=== PATIENT | female | born 1990 | race American Indian/Alaskan Native ===

== ENCOUNTER 2017-11-18 15:10 | Emergency (ER) | payer MEDICAID ==
[2017-11-18 15:49] LABS: Bilirubin,Urine NEG (Negative); Blood,Urine LG (Negative); Color,Urine Yellow (Yellow); Mucus,Urine 3+ /HPF; RBC,Urine > 182.0 /HPF (0.0-6.0)
[2017-11-18 16:05] LABS: HCG Qualitative,Urine Negative (Negative)
[2017-11-18] MEDS ORDERED: NACL 0.9% 1000 ML 1,000 ML IV ONE (20:46)
[2017-11-18] MEDS ORDERED: MORPHINE IV ONE ×2 (20:47→23:41)
--- NOTE | 2017-11-18 21:07 | Emergency Department Report ---
HPI - General Chief Complaint: Abdominal Pain Time Seen by Provider: 11/18/17 20:32 - HPI HPI: 27-year-old female presents the emergency department with a 5 day history of right sided abdominal pain and heavy vaginal bleeding. Patient says that her implanted control felt like it popped just prior to all of these symptoms starting. It is Emplanon and she has had it in for about 1.5 years. She normally does not have any menstrual cycle but as soon as she had this popping sensation in her left upper arm she began having symptoms of a menstrual cycle. However the abdominal pain is more up in the abdomen than in the pelvis but does radiate down to the pelvis and her right leg. It is associated with a small amount of vaginal discharge when the symptoms first began, but that has since resolved, and subjective fever. Patient also has some body aches and complains of a mixed dry and productive cough. She otherwise just has a past medical history of asthma. [facility] sees [facility]/ [facility] and has an appointment for tomorrow but when she spoke to them and discussed her symptoms she was told to come to the emergency department. She's been taking [id number] pain medication for her symptoms without any relief. ED Past Medical Hx - Past Medical History Previous Medical History?: Yes Hx Asthma: Yes - Surgical History Past Surgical History?: No - Social History Smoking Status: Current Every Day Smoker Substance Use Type: Marijuana - Medications Home Medications: Home Medications Medication Instructions Recorded Confirmed Last Taken Type HYDROcodone/APAP 5-325 [Delta 1 each PO Q6HR PRN #10 tablet 11/19/17 Unknown Rx 5/325] Nitrofurantoin Cecil/M-Cryst 100 mg PO BID #14 capsule 11/19/17 Unknown Rx [Macrobid CAP] ED Review of Systems ROS: Stated complaint: RT SIDE PAIN Other details as noted in HPI Comment: All other systems reviewed and negative Constitutional: fever (subjective). denies: chills Eyes: denies: eye pain, eye discharge, vision change ENT: denies: ear pain, throat pain Respiratory: denies: cough, shortness of breath, wheezing Cardiovascular: denies: chest pain, palpitations Gastrointestinal: abdominal pain. denies: vomiting Genitourinary: discharge, abnormal menses, other (vaginal bleeding) Musculoskeletal: myalgia. denies: joint swelling Skin: denies: rash, lesions Neurological: denies: headache, weakness, paresthesias Physical Exam - Physical Exam Vital Signs: Vital Signs 11/18/17 11/18/17 15:13 20:47 Temperature 98.0 F 98.4 F Pulse Rate 105 H 67 Respiratory 18 16 Rate Blood Pressure 126/81 Blood Pressure 125/77 [Right] O2 Sat by Pulse 99 99 Oximetry Physical Exam: GENERAL: The patient is well-developed well-nourished. HENT: Normocephalic. Atraumatic. Patient has moist mucous membranes. EYES: Extraocular motions are intact. Pupils equal reactive to light bilaterally. NECK: Supple. Trachea is midline. CHEST/LUNGS: Clear to auscultation. There is no respiratory distress noted. HEART/CARDIOVASCULAR: Regular. There is no tachycardia. There is no murmur. ABDOMEN: Abdomen is soft. There is some right middle and lower quadrant abdominal tenderness palpation. No guarding. Patient has normal bowel sounds. SKIN: Skin is warm and dry. NEURO: The patient is awake, alert, and oriented. The patient is cooperative. The patient has no focal neurologic deficits. The patient has normal speech and gait. MUSCULOSKELETAL: There is no tenderness or deformity. There is no limitation range of motion. There is no evidence of acute injury. ED Course Vital Signs 11/18/17 11/18/17 15:13 20:47 Temperature 98.0 F 98.4 F Pulse Rate 105 H 67 Respiratory 18 16 Rate Blood Pressure 126/81 Blood Pressure 125/77 [Right] O2 Sat by Pulse 99 99 Oximetry ED Medical Decision Making - Lab Data Result diagrams: 11/18/17 21:00 11/18/17 21:00 - Radiology Data Radiology results: report reviewed EXAM: CT ABDOMEN PELVIS W CON HISTORY: right sided abdominal pain TECHNIQUE: CT abdomen and pelvis with intravenous contrast PRIORS: None. FINDINGS: No acute abnormality identified in the lung bases. No focal abnormality identified within the liver parenchyma. The spleen demonstrates normal size and attenuation. No pancreatic abnormalities seen. The kidneys demonstrate symmetric contrast enhancement. No evidence of hydronephrosis. The adrenal glands are unremarkable Abdominal aorta is normal in caliber. No pathologically enlarged lymph nodes are identified. No signs of free fluid or free air No evidence of small bowel dilatation. Colon is nondistended. No pericolonic inflammatory change. Urinary bladder is unremarkable. IMPRESSION: Negative. No acute abnormalities seen Transcribed By: JDK Dictated By: ARON ARMSTRONG MD Electronically Authenticated By: ARON ARMSTRONG MD Signed Date/Time: 11/18/17 6477 EXAM: US TRANSVAGINAL US TRANSABDOMINAL HISTORY: pelvic pain TECHNIQUE: Transabdominal and transvaginal sonographic evaluation was performed of the female pelvis with and without color Doppler imaging. PRIORS: CT abdomen and pelvis dated 11/18/2017. FINDINGS: The uterus is retroflexed and the myometrium is unremarkable with no focal lesion identified. The endometrial stripe is normal in thickness. Punctate, echogenic foci are noted within the endometrium. Survey of the adnexal regions reveal normal flow to both ovaries. 1.8 x 1.1 x 0.6 cm cystic lesion noted in the left ovary. No free fluid within the posterior cul-de-sac. Measurements: Last menstrual: 11/13/2017. Uterus: 8.5 x 4.1 x 5.6 cm. Endometrial stripe: 2.9 mm. Right ovary: 2.1 x 1.2 x 2.1 cm. Left ovary: 3.5 x 2.1 x 2.3 cm. IMPRESSION: No acute abnormality involving the uterus or adnexa/ovaries. Incidental punctate echogenic foci within the endometrium, probable small calcifications. Extensive differential which may be secondary to small polyps, prior infection or inflammatory process. Transcribed By: AMINA Dictated By: HAILEY BUSTOS DO Electronically Authenticated By: HAILEY BUSTOS DO Signed Date/Time: 11/19/17 0201 - Medical Decision Making Patient presents with a 5 day history of some right-sided abdominal pain, heavy vaginal bleeding that she believes it started after some issue with her implanted contraceptive device. Patient's vital signs were stable throughout her ED course including being afebrile. Labs did not show any significant anemia, no leukocytosis, no renal deficiency or glucose abnormalities. There is a mild urinary tract infection. The patient has some hypokalemia with potassium of 3 that was replaced with potassium chloride. CT scan of the abdomen and pelvis with IV contrast did not show any acute process. Transvaginal ultrasound also did not show any acute process or etiology of the patient's symptoms. She has been reevaluated multiple times for multiple hours and has remained stable throughout her ED course. She has an appointment set up for this morning, Wednesday, with the [facility]. She'll be discharged home with some pain medication, antibiotics for her mild urinary tract infection. She is instructed to return to the emergency Department with any worsening of her symptoms or any acute distress. - Differential Diagnosis appendicitis, nephrolithiasis, ovarian cyst, ovarian torsion, fibroids Critical Care Time: No Critical care attestation.: If time is entered above; I have spent that time in minutes in the direct care of this critically ill patient, excluding procedure time. ED Disposition Clinical Impression: Vaginal bleeding, Pelvic pain, Hypokalemia Menorrhagia Qualifiers: Menorrahagia type: with irregular cycle Qualified Code(s): N92.1 - Excessive and frequent menstruation with irregular cycle Abdominal pain Qualifiers: Abdominal location: unspecified location Qualified Code(s): R10.9 - Unspecified abdominal pain UTI (urinary tract infection) Qualifiers: Urinary tract infection type: acute cystitis Hematuria presence: with hematuria Qualified Code(s): N30.01 - Acute cystitis with hematuria Disposition: TO HOME OR SELFCARE Is pt being admited?: No Condition: Stable Instructions: Dysfunctional Uterine Bleeding (ED), Urinary Tract Infection in Women (ED), Hypokalemia (ED), Abdominal Pain (ED), Menorrhagia (ED) Additional Instructions: Please follow-up with your [facility] later today as previously scheduled. Return to the emergency Department with any worsening of your symptoms or any acute distress. You have been prescribed a medication that is sedating and therefore should not be taken prior to driving, working, and responsible for children and in no way should be mixed with alcohol of any quantity. Prescriptions: HYDROcodone/APAP 5-325 [Delta 5/325] 1 each PO Q6HR PRN #10 tablet PRN Reason: Pain Nitrofurantoin Cecil/M-Cryst [Macrobid CAP] 100 mg PO BID #14 capsule Referrals: [facility] [Provider Group] - 11/19/17 Time of Disposition: 02:11
[2017-11-18 21:08] LABS: Basophils % (Auto) 0.4 % (0.0-1.8); Eosinophils # (Auto) 0.3 K/mm3 (0.0-0.4); Eosinophils % (Auto) 2.7 % (0.0-4.3); Hematocrit 39.6 % (30.3-42.9); Lymphocytes # (Auto) 2.5 K/mm3 (1.2-5.4); Lymphocytes % (Auto) 26.3 % (13.4-35.0); Mean Corpuscular HGB Conc 35 % (30-34); Mean Corpuscular Hemoglobin 32 pg (28-32); Mean Corpuscular Volume 91 fl (79-97); Monocytes # (Auto) 0.6 K/mm3 (0.0-0.8); Monocytes % (Auto) 6.1 % (0.0-7.3); Platelet Count 228 K/mm3 (140-440); Red Blood Count 4.36 M/mm3 (3.65-5.03); Red Cell Distribution Width 13.9 % (13.2-15.2)
[2017-11-18 21:26] LABS: Alanine Aminotransferase 12 units/L (7-56); Albumin 3.4 g/dL (3.9-5); BUN/Creatinine Ratio 17; Blood Urea Nitrogen 5 mg/dL (7-17); Calcium 7.2 mg/dL (8.4-10.2); Hemolysis Index 31; Lipase 10 units/L (13-60)
[2017-11-18] MEDS ORDERED: K-DUR PO ONE (21:37)
[2017-11-18] MEDS ORDERED: TESSALON PERLES PO ONE (22:08)
--- NOTE | 2017-11-18 22:58 | Cat Scan Report ---
FINAL REPORT EXAM: CT ABDOMEN PELVIS W CON HISTORY: right sided abdominal pain TECHNIQUE: CT abdomen and pelvis with intravenous contrast PRIORS: None. FINDINGS: No acute abnormality identified in the lung bases. No focal abnormality identified within the liver parenchyma. The spleen demonstrates normal size and attenuation. No pancreatic abnormalities seen. The kidneys demonstrate symmetric contrast enhancement. No evidence of hydronephrosis. The adrenal glands are unremarkable Abdominal aorta is normal in caliber. No pathologically enlarged lymph nodes are identified. No signs of free fluid or free air No evidence of small bowel dilatation. Colon is nondistended. No pericolonic inflammatory change. Urinary bladder is unremarkable. IMPRESSION: Negative. No acute abnormalities seen
--- NOTE | 2017-11-19 02:01 | Ultrasound Report ---
FINAL REPORT EXAM: US TRANSVAGINAL US TRANSABDOMINAL HISTORY: pelvic pain TECHNIQUE: Transabdominal and transvaginal sonographic evaluation was performed of the female pelvis with and without color Doppler imaging. PRIORS: CT abdomen and pelvis dated 11/18/2017. FINDINGS: The uterus is retroflexed and the myometrium is unremarkable with no focal lesion identified. The endometrial stripe is normal in thickness. Punctate, echogenic foci are noted within the endometrium. Survey of the adnexal regions reveal normal flow to both ovaries. 1.8 x 1.1 x 0.6 cm cystic lesion noted in the left ovary. No free fluid within the posterior cul-de-sac. Measurements: Last menstrual: 11/13/2017. Uterus: 8.5 x 4.1 x 5.6 cm. Endometrial stripe: 2.9 mm. Right ovary: 2.1 x 1.2 x 2.1 cm. Left ovary: 3.5 x 2.1 x 2.3 cm. IMPRESSION: No acute abnormality involving the uterus or adnexa/ovaries. Incidental punctate echogenic foci within the endometrium, probable small calcifications. Extensive differential which may be secondary to small polyps, prior infection or inflammatory process.
--- NOTE | 2017-11-19 02:03 | Ultrasound Report ---
FINAL REPORT EXAM: US PELVIS DUPLEX DOPPLER COMP HISTORY: pelvic pain TECHNIQUE: Transabdominal and transvaginal sonographic evaluation was performed of the female pelvis with and without color Doppler imaging. PRIORS: CT abdomen and pelvis dated 11/18/2017. FINDINGS: The uterus is retroflexed and the myometrium is unremarkable with no focal lesion identified. The endometrial stripe is normal in thickness. Punctate, echogenic foci are noted within the endometrium. Survey of the adnexal regions reveal normal flow to both ovaries. 1.8 x 1.1 x 0.6 cm cystic lesion noted in the left ovary. No free fluid within the posterior cul-de-sac. Measurements: Last menstrual: 11/13/2017. Uterus: 8.5 x 4.1 x 5.6 cm. Endometrial stripe: 2.9 mm. Right ovary: 2.1 x 1.2 x 2.1 cm. Left ovary: 3.5 x 2.1 x 2.3 cm. IMPRESSION: No acute abnormality involving the uterus or adnexa/ovaries. Incidental punctate echogenic foci within the endometrium, probable small calcifications. Extensive differential which may be secondary to small polyps, prior infection or inflammatory process.
[2017-11-19] MEDS ORDERED: MACROBID PO ONE (02:09)
[2017-11-19 02:35] VITALS: BP 117/88
== END 2017-11-19 02:36 | disposition home or self-care (01) ==
LOC: ED 15:10
DX: N30.01 Acute cystitis with hematuria (principal); N93.9 Abnormal uterine and vaginal bleeding, unspecified; N92.1 Excessive and frequent menstruation with irregular cycle; E87.6 Hypokalemia; J45.909 Unspecified asthma, uncomplicated; F17.200 Nicotine dependence, unspecified, uncomplicated; F12.90 Cannabis use, unspecified, uncomplicated
CPT/HCPCS: 36415; 74177; 76830; 80053; 81001; 81025; 83690; 85025; 93975; 96374; 96376; 99284; J2270; J7030; Q9967

== ENCOUNTER 2018-08-19 19:03 | Emergency (ER) | payer MEDICAID ==
--- NOTE | 2018-08-19 19:23 | Emergency Department Report ---
Blank Doc - Documentation Documentation: This is a 28-year-old female that presents with sore throat, body aches, and h eadache. Denies worst headache. Denies thunderclap headache. Denies any injuries. This initial assessment/diagnostic orders/clinical plan/treatment(s) is/are subject to change based on patient's health status, clinical progression and re- assessment by fellow clinical providers in the ED. Further treatment and workup at subsequent clinical providers discretion. Patient/guardians urged not to elope from the ED as their condition may be serious if not clinically assessed and managed. Initial orders include: 1- Patient sent to [facility] for further evaluation and treatment 2- strep swab
[2018-08-19 19:25] VITALS: BP 123/77
--- NOTE | 2018-08-19 21:17 | Emergency Department Report ---
ED ENT HPI - General Chief complaint: Sore Throat Stated complaint: SORE THROAT/NAUSEA Time Seen by Provider: 08/19/18 19:22 Source: patient Mode of arrival: Ambulatory Limitations: No Limitations, Language Barrier - History of Present Illness Initial comments: Pt is a 28 yo female who presents to the ED with c/o sore throat that began yesterday. She has associated SEN, fatigue, and pain with swallowing. She denies any fever or ear ache. She denies any sick contact. she states she took motrin without much relief. she denies PMHx. she has an allergy to penicillin. - Related Data Previous Rx's Medication Instructions Recorded Last Taken Type HYDROcodone/APAP 5-325 [[place] 1 each PO Q6HR PRN #10 tablet 11/19/17 Unknown Rx 5/325] Nitrofurantoin Bull[place]/M-Cryst 100 mg PO BID #14 capsule 11/19/17 Unknown Rx [Macrobid CAP] Azithromycin [Zithromax Tri-Sy] 500 mg PO DAILY 5 Days #5 tablet 08/19/18 Unknown Rx Allergies Allergy/AdvReac Type Severity Reaction Status Date / Time Penicillins Allergy Unknown Verified 11/18/17 15:13 ED Dental HPI - General Chief complaint: Sore Throat Stated complaint: SORE THROAT/NAUSEA Time Seen by Provider: 08/19/18 19:22 Source: patient Mode of arrival: Ambulatory Limitations: No Limitations, Language Barrier - Related Data Previous Rx's Medication Instructions Recorded Last Taken Type HYDROcodone/APAP 5-325 [[place] 1 each PO Q6HR PRN #10 tablet 11/19/17 Unknown Rx 5/325] Nitrofurantoin Bulloch/M-Cryst 100 mg PO BID #14 capsule 11/19/17 Unknown Rx [Macrobid CAP] Azithromycin [Zithromax Tri-Sy] 500 mg PO DAILY 5 Days #5 tablet 08/19/18 Unknown Rx Allergies Allergy/AdvReac Type Severity Reaction Status Date / Time Penicillins Allergy Unknown Verified 11/18/17 15:13 ED Review of Systems ROS: Stated complaint: SORE THROAT/NAUSEA Other details as noted in HPI Comment: All other systems reviewed and negative ED Past Medical Hx - Past Medical History Previous Medical History?: Yes Hx Asthma: Yes - Surgical History Past Surgical History?: No - Social History Smoking Status: Current Every Day Smoker Substance Use Type: Marijuana - Medications Home Medications: Home Medications Medication Instructions Recorded Confirmed Last Taken Type HYDROcodone/APAP 5-325 [[place] 1 each PO Q6HR PRN #10 tablet 11/19/17 Unknown Rx 5/325] Nitrofurantoin Bulloch/M-Cryst 100 mg PO BID #14 capsule 11/19/17 Unknown Rx [Macrobid CAP] Azithromycin [Zithromax Tri-Sy] 500 mg PO DAILY 5 Days #5 tablet 08/19/18 Unknown Rx ED Physical Exam - General Limitations: No Limitations, Language Barrier General appearance: alert, in no apparent distress - Head Head exam: Present: atraumatic, normocephalic - Eye Eye exam: Present: normal appearance, PERRL - ENT ENT exam: Present: mucous membranes moist, other (normal nasal turbinates bilaterally, small amount of tonsillar hypertrophy bilaterally with exudates present, uvula is midline, no difficulty tolerating secretions) - Respiratory Respiratory exam: Present: normal lung sounds bilaterally. Absent: respiratory distress, wheezes, rales, rhonchi, stridor, chest wall tenderness, accessory muscle use, decreased breath sounds, prolonged expiratory - Cardiovascular Cardiovascular Exam: Present: regular rate, normal rhythm, normal heart sounds. Absent: systolic murmur, diastolic murmur, rubs, gallop - Neurological Exam Neurological exam: Present: alert, oriented X3 - Psychiatric Psychiatric exam: Present: normal affect, normal mood - Skin Skin exam: Present: warm, dry, intact ED Course Vital Signs 08/19/18 08/19/18 19:23 21:22 Temperature 99.2 F Pulse Rate 91 H 87 Respiratory 20 17 Rate Blood Pressure 123/77 O2 Sat by Pulse 100 100 Oximetry ED Medical Decision Making - Lab Data Lab Results 08/19/18 Range/Units 19:27 Group A Strep Rapid Positive A (Negative) Vital Signs 08/19/18 08/19/18 19:23 21:22 Temperature 99.2 F Pulse Rate 91 H 87 Respiratory 20 17 Rate Blood Pressure 123/77 O2 Sat by Pulse 100 100 Oximetry - Medical Decision Making vitals are stable. rapid strep is positive. lung are clear. tonsils with exudates present. uvula is midline pt will be placed on azithromycin due to penicillin allergy. advised to take all medication as prescribed. continue drinking plenty of fluids. follow up with a primary care doctor in the next 2-3 days. throw away toothbrush, do not drink after others or allow others to drink after you. take tylenol or motrin as needed. return to the emergency room for any new or worsening symptoms. - Differential Diagnosis URI, strep, tonsillitis, viral syndrome, allergies Critical care attestation.: If time is entered above; I have spent that time in minutes in the direct care of this critically ill patient, excluding procedure time. ED Disposition Clinical Impression: Strep pharyngitis Disposition: - TO HOME OR SELFCARE Is pt being admited?: No Does the pt Need Aspirin: No Condition: Stable Instructions: Strep Throat (ED) Additional Instructions: Take all medication as prescribed. continue drinking plenty of fluids. follow up with a primary care doctor in the next 2-3 days. throw away toothbrush, do not drink after others or allow others to drink after you. take tylenol or motrin as needed. return to the emergency room for any new or worsening symptoms. use warm salt water gargles. Prescriptions: Azithromycin [Zithromax Tri-Sy] 500 mg PO DAILY 5 Days #5 tablet Referrals: HAMMAD BUTT MD [Primary Care Provider] - 2-3 Days Forms: Work/School Release Form(ED) Time of Disposition: 21:16 Print Language: BAHRAINI
== END 2018-08-19 21:22 | disposition home or self-care (01) ==
LOC: ED 19:03
DX: J02.0 Streptococcal pharyngitis (principal); J45.909 Unspecified asthma, uncomplicated; F17.200 Nicotine dependence, unspecified, uncomplicated; F12.90 Cannabis use, unspecified, uncomplicated; Z88.0 Allergy status to penicillin
CPT/HCPCS: 87430; 93005; 93010; 99283